=== PATIENT | female | born 1985 | race Caucasian/White ===

== ENCOUNTER 2023-03-19 10:31 | Emergency (ER) | payer MEDICARE, MEDICAID, SELFPAY ==
--- NOTE | ~2023-03-19 | CT_ITS ---
EXAMINATION: CT lumbar spine wo con DATE: 03/19/2023 13:13 INDICATION: Low back pain post fall TECHNIQUE: Computed tomography (CT) of the lumbar spine was performed without intravenous contrast. A utomated exposure control and iterative reconstruction technique were employed. The dose-length produ ct was 1808.21 mGy-cm. COMPARISON: None FINDINGS: 11 degrees lumbar levoscoliosis. Sagittal alignment is normal. Acute-appearing L2 superior endplate c ompression fracture with up to 20% anterior vertebral body height loss and with subtle linear lucenci es along the fracture lines. Chronic appearing mild anterior wedging with <20% anterior vertebral bod y height loss at T12 and mild posterior wedging with 20% posterior vertebral body height loss at L5. Moderate disc height loss at T11-T12 and L5-S1, mild to moderate right-sided predominant disc height loss at L4-L5 and mild right-sided disc height loss at L2-L3 and L3-L4. Cholecystectomy clips the gal lbladder fossa and likely dropped clip along the posterior margin of the right hepatic lobe. There ar e somewhat horizontal orientation of the right kidney. Valenzuela catheter within the decompressed bladder . Paravertebral soft tissues are unremarkable. The following disc levels are specifically discussed: T11-T12: There is mild bilateral facet joint osteoarthritis. There is no neural foraminal stenosis. T here is no central canal stenosis. T12-L1: There is minimal bilateral facet joint osteoarthritis. There is no neural foraminal stenosis. There is no central canal stenosis. L1-L2: Disc is mildly bulging. There is mild bilateral facet joint osteoarthritis. There is mild bila teral neural foraminal stenosis. There is minimal central canal stenosis. L2-L3: Disc is mildly bulging. There is mild bilateral facet joint osteoarthritis. There is mild bila teral neural foraminal stenosis. There is mild central canal stenosis. L3-L4: Disc is bulging with superimposed central disc protrusion. There is mild bilateral facet joint osteoarthritis. There is mild bilateral neural foraminal stenosis. There is moderate to severe centr al canal stenosis. L4-L5: Posterior disc osteophyte complex. There is moderate right and mild to moderate left facet martha nt osteoarthritis. There is moderate left and mild to moderate right neural foraminal stenosis. There is moderate to severe central canal stenosis. L5-S1: Posterior disc osteophyte complex. There is moderate left and moderate to severe right facet j oint osteoarthritis. There is moderate bilateral neural foraminal stenosis. There is mild central can al stenosis. IMPRESSION: 1. Relatively acute appearing L2 superior endplate compression fracture with mild anterior vertebral body height loss. 2. Chronic appearing mild superior endplate compression fracture at T12 and chronic appearing mild po sterior wedging at L5 which could be either developmental or old compression fracture. 3. Mild lumbar levoscoliosis with moderate spondylosis. Reviewed, dictated and finalized at location A. OTIONS DIRECTOR IMPRESSION: 1. Relatively acute appearing L2 superior endplate compression fracture with mi ld anterior vertebral body height loss. 2. Chronic appearing mild superior endplate compression fracture at T12 and chr onic appearing mild posterior wedging at L5 which could be either developmental or old compression fracture. 3. Mild lumbar levoscoliosis with moderate spondylosis.
[2023-03-19 10:35] VITALS: BP 129/67; PULSE 91; RESP 20; TEMP 36.9; O2SAT 96
[2023-03-19 10:40] VITALS: BP 129/67; PULSE 93; RESP 20; TEMP 36.9; O2SAT 99
--- NOTE | 2023-03-19 10:44 | ED.BACK ---
HPI - Back Pain/Injury General Chief Complaint: Fall Stated Complaint: Fall/back pain Time Seen by Provider: 03/19/23 10:42 Source: patient Mode of arrival: EMS History of Present Illness HPI Narrative: 37-year-old female with prolapse intervertebral disc presents to the ER after she fell backwards. She complains of -- low back pain -- numbness below her waist -- Shortness of breath. patient had a history of prolapse of the intervertebral disc status post back surgery. The patient ambulates with a walker. Patient refuses to lay in bed for examination. MD elicited complaint: back pain Pertinent past history: prior back pain Onset (ago): hour(s) ( 1 hour ago) Timing: constant Pain scale (0-10): 10 Similar Symptoms Previously: Yes Quality: aching Location: lumbar spine Radiation: none Exacerbating factors: movement Relieving factors: none Context: fall Associated symptoms: difficulty walking and loss of sensation in lower extremities Work related injury: No Related Data Allergies Allergy/AdvReac Type Severity Reaction Status Date / Time No Known Allergies Allergy Verified 03/19/23 13:35 Review of Systems Review of Systems: All systems reviewed & are unremarkable except as noted in HPI and below Constitutional: Constitutional: Reports as per HPI and Reports no additional constitutional complaints Eyes: Eyes: Reports as per HPI and Reports no additional eye complaints ENT: Reports system reviewed and no additional complaints, except as documented and Reports as per HPI Cardiovascular: Cardiovascular: Reports as per HPI and Reports no additional cardiovascular complaints Respiratory: Respiratory: Reports as per HPI and Reports no additional respiratory complaints Gastrointestinal: Gastrointestinal: Reports as per HPI and Reports no additional gastrointestinal complaints Genitourinary: Genitourinary: Reports no additional female genitourinary complaints Comments: patient intermittently self catheterizes herself Musculoskeletal: Musculoskeletal: Reports back pain Integumentary/Breasts: Skin/Breast: Reports system reviewed and no additional complaints, except as docu Neurologic: Comments: weakness below her waist Psychiatric: Psychiatric: Reports no additional psychiatric complaints and Reports as per HPI Endocrine: Endocrine: Reports no additional endocrine complaints and Reports as per HPI Hematologic/Lymphatic: Hematologic/Lymphatic: Reports no additional hematologic/lymphatic complaints and Reports as per HPI Allergic/Immunologic: Allergic/Immunologic: Reports no additional allergic/immunologic complaints and Reports as per HPI [facility] Past Medical History Medical History (Updated 03/19/23 @ 14:19 by Moisés Sharma MD) Chronic bronchitis Chronic low back pain Surgical History Surgical History (Updated 03/19/23 @ 12:17 by Moisés Sharma MD) Previous back surgery Exam Const: Nutritional Appearance: obese Orientation/consciousness: patient oriented x3 Limitations: no limitations HENMT: Head: normal to inspection Ears: external ears normal Face/Nose/Sinus: Normal external nose present Face and sinus: normal facial exam Mouth: Yes Normal oral and palatal mucosa present Throat: posterior oropharynx normal Eyes: Conjunctivae: conjunctivae normal Pupils: Equal, round and reactive pupils present EOM: EOMs intact bilaterally Direct Ophthalmoscopy: no photophobia Neck: Neck: normal visual inspection, no lymphadenopathy and no meningeal signs Chest: Chest palpation & inspection: normal inspection of the chest Resp: Effort & Inspection: normal respiratory effort Auscultation: clear to auscultation bilaterally Cardio: Rate: regular rate Rhythm: regular rhythm GI: Auscultation: normal bowel sounds Other: No tenderness/rigidity : General: Yes no CVA tenderness Back/Spine/Pelvis: Other: Spinal tenderness over the lumbar vertebrae. Patient is unab
[2023-03-19] MEDS: KETOROLAC (*BKC) 60 MG/2 ML VIAL IM (10:58)
[2023-03-19 11:06] VITALS: PULSE 84; RESP 20; O2SAT 100
--- NOTE | 2023-03-19 11:09 | PC.NURSE ---
pt refusing to get up from bedside chair. explained need to obtain urine specimen, commode brought into room. pt refused to get up on cot , i cant move . explained will give 15 min to attempt to move after medication given.
--- NOTE | 2023-03-19 11:33 | PC.NURSE ---
side rail raised on bed, pt able to pull self up and commode placed under patient. awaiting urine specimen. call valencia in reach
--- NOTE | 2023-03-19 11:46 | PC.NURSE ---
no urine in commode hat. pt states i usually self cath, im numb from waist down from a previous fall, i use a walker . is able to urinate at time, has adult brief on . pt requesting to sit on commode longer.
[2023-03-19 12:24] LABS: Bilirubin Urine Negative (Negative); Blood Urine Negative (Negative); Color Urine Yellow (Yellow); Glucose Urine UA 1+ (Negative); Ketones Urine Negative (Negative); Leukocyte Esterase Ur Negative LEU/UL (Negative); Nitrate Urine Positive (Negative); Protein Urine Trace (Negative); Specific Grav Ur >= 1.030 (1.010-1.020); pH Urine 5.5 (5.0-8.0)
[2023-03-19 12:27] LABS: Add Urine Microscopic? YES; Appearance Urine Slightly Cloudy (Clear); RBC Urine None seen /hpf (0-2); Squamous Epithelial Cell Urine Rare /hpf (Few); WBC Urine None seen /hpf (0-3)
[2023-03-19 12:28] LABS: Bacteria Urine 4+ /hpf
[2023-03-19 12:32] LABS: Pregnancy On Board Control Positive; Urine Pregnancy Test Negative
[2023-03-19] MEDS: ONDANSETRON HCL ODT 4 MG TABLET PO (12:52)
[2023-03-19] MEDS: HYDROmorphone HCL INJ (*CRX) 2 MG/ML VIAL 1 MG IM (12:52)
[2023-03-19 14:17] VITALS: BP 118/67; PULSE 84; RESP 20; TEMP 36.9; O2SAT 95
--- NOTE | 2023-03-22 13:35 | PC.NURSE ---
final urine culture report reviewed. >100,000 E.coli isolated. pt was not dx with uti during this visit. erp, dr talbert reviewed urine culture report and prescribed antibiotic. pt contacted per phone. notified of new dx and need to start new prescription. pharmacy location verified. keflex 500mg po bid for 7 days called in to [facility] in [place]. pt instructed to start new med and f/u with pmd for further instructions.
== END 2023-03-19 14:27 | disposition home or self-care (01) ==
PROVIDERS: Emergency Provider Internal Medicine Critical Care Medicine
DX: S32.020A Wedge compression fracture of second lumbar vertebra, initial encounter for closed fracture (principal); Z98.890 Other specified postprocedural states; W18.30XA Fall on same level, unspecified, initial encounter
CPT/HCPCS: 72131; 81001; 81025; 87077; 87086; 87088; 87186; 96372; 99284; A9270; J1170; J1885